=== PATIENT | male | born 1990 | race American Indian/Alaskan Native ===

== ENCOUNTER 2017-12-18 17:33 | Emergency (ER) | payer MEDICAID ==
[2017-12-18 17:36] VITALS: BMI 24.4
[2017-12-18 17:40] VITALS: PULSE 80; RESP 20; TEMP 98.9
[2017-12-18 17:41] VITALS: O2SAT 98
[2017-12-18] MEDS ORDERED: Oxycodone/Acetaminophen 5/325 mg Tab PO STA (18:40)
[2017-12-18] MEDS ORDERED: Lidocaine Hydrochloride 5 ML INJ ONE (18:42)
[2017-12-18] MEDS ORDERED: Oxycodone/Acetaminophen 5/325 mg Tab ONE (18:42)
--- NOTE | 2017-12-18 19:17 | C.PDOC ---
History Of Present Illness 27 year old male presents to the emergency department with complaints of a painful lesion on his right medial buttock for the last four days. Patient reports that he missed work today due to the pain. Time Seen by Provider: 12/18/17 18:31 Chief Complaint (Nursing): GI Problem History Per: Patient History/Exam Limitations: no limitations Onset/Duration Of Symptoms: Days (4) Current Symptoms Are (Timing): Still Present Location Of Injury: Right: Buttock Quality Of Symptoms: Painful Past Medical History Reviewed: Historical Data, Nursing Documentation, Vital Signs Vital Signs: Last Vital Signs Temp 98.9 F 12/18/17 19:41 Pulse 80 12/18/17 19:41 Resp 20 12/18/17 19:41 BP 120/80 12/18/17 19:41 Pulse Ox 98 12/18/17 19:41 - Medical History PMH: No Chronic Diseases Surgical History: No Surg Hx Family History: States: No Known Family Hx - Social History Hx Alcohol Use: No Hx Substance Use: Yes - Immunization History Hx Tetanus Toxoid Vaccination: No Hx Influenza Vaccination: No Hx Pneumococcal Vaccination: No Review Of Systems Except As Marked, All Systems Reviewed And Found Negative. Skin: Positive for: Lesions (right medial buttock) Physical Exam - Physical Exam Appears: Non-toxic, No Acute Distress Skin: Warm, Dry, Other (4x4cm raised fluctuance on right medial buttock, does not cross midline) Head: Atraumatic Eye(s): bilateral: Normal Inspection Neck: Normal ROM, Supple Chest: Symmetrical Cardiovascular: Rhythm Regular, No Murmur Respiratory: Normal Breath Sounds Gastrointestinal/Abdominal: Normal Exam, Soft, No Tenderness, No Guarding, No Rebound Back: Normal Inspection Extremity: Normal ROM Extremity: Bilateral: Atraumatic Neurological/Psych: Oriented x3, Normal Speech, Normal Cognition ED Course And Treatment O2 Sat by Pulse Oximetry: 98 (RA) Pulse Ox Interpretation: Normal - Incision & Drainage Of Abscess Anesthesia: Lidocaine 1% (5cc, subcutaenous ) Procedure: Incised W/Scalpel Blade#: (10), Irrigated Cavity W/Saline, Packed W/ Gauze Medical Decision Making Medical Decision Making: small boil/abscess medial R buttock now s/p I/D x 5 cc's putrid puss much improved NOT a pilonydal cyst. Bactrim for presumed MRSA Plan: Bactrim 1 tab PO Percocet 1 tab PO Disposition Doctor Will See Patient In The: Office Counseled Patient/Family Regarding: Studies Performed, Diagnosis - Disposition Referrals: [facility] [Outside] [facility] [Outside] [facility] [Outside] Disposition: HOME/ ROUTINE Disposition Time: 19:16 Condition: GOOD Additional Instructions: ice packs to the area tonight for pain contol Bactrim DS (antibiotic) twice a day to complete 5 days Motrin/Advil 400-600 mg every 6 hours as needed for local pain Return in 2 days for wound check and to pull the packing Prescriptions: Sulfamethoxazole/Trimethoprim [Bactrim DS 800 mg-160 mg] 1 tab PO BID #9 tab Instructions: Abscess Incision and Drainage Forms: [facility] (Uzbek), Work Excuse - Clinical Impression Clinical Impression: Abscess - Scribe Statement The provider has reviewed the documentation as recorded by the Scribe (Gabe Brizuela) Provider Attestation: All medical record entries made by the Scribe were at my direction and personally dictated by me. I have reviewed the chart and agree that the record accurately reflects my personal performance of the history, physical exam, medical decision making, and the department course for this patient. I have also personally directed, reviewed, and agree with the discharge instructions and disposition.
[2017-12-18] MEDS ORDERED: Tmp-Smz 800 mg-160 mg DS Tab PO STA (19:20)
[2017-12-18] MEDS ORDERED: Tmp-Smz 800 mg-160 mg DS Tab ONE (19:36)
[2017-12-18 19:43] VITALS: BP 120/80
== END 2017-12-18 19:43 | disposition home or self-care (01) ==
LOC: C.ER 17:33
DX: L02.31 Cutaneous abscess of buttock (principal)

== ENCOUNTER 2018-02-12 21:51 | Emergency (ER) | payer MEDICAID ==
[2018-02-12 21:52] VITALS: BMI 24.4
[2018-02-12 22:07] VITALS: BP 135/84; RESP 16; TEMP 98.4
--- NOTE | 2018-02-12 23:17 | C.PDOC ---
Time Seen by Provider: 02/12/18 22:05 Chief Complaint (Nursing): GI Problem History Per: Patient Onset/Duration Of Symptoms: Days, Intermittent Episodes Current Symptoms Are (Timing): Still Present Amount of Blood Loss: Small Severity: Mild Quality Of Discomfort: "Pain" Associated Symptoms: Rectal Bleeding Modifying Factors: None Additional History Per: Prior Records Past Medical History Reviewed: Historical Data, Nursing Documentation, Vital Signs Vital Signs: Last Vital Signs Temp 98.4 F 02/12/18 22:04 Pulse 80 02/12/18 22:04 Resp 16 02/12/18 22:04 BP 135/84 02/12/18 22:04 Pulse Ox 99 02/12/18 22:04 - Medical History PMH: No Chronic Diseases Surgical History: No Surg Hx Family History: States: Unknown Family Hx - Social History Hx Alcohol Use: No Hx Substance Use: Yes - Immunization History Hx Tetanus Toxoid Vaccination: No Hx Influenza Vaccination: No Hx Pneumococcal Vaccination: No Review Of Systems Except As Marked, All Systems Reviewed And Found Negative. Constitutional: Negative for: Fever, Weakness Cardiovascular: Negative for: Chest Pain, Light Headedness Respiratory: Negative for: Shortness of Breath Gastrointestinal: Positive for: Constipation, Hematochezia, Rectal Pain. Negative for: Vomiting, Abdominal Pain, Diarrhea, Melena, Hematemesis Genitourinary: Negative for: Dysuria Musculoskeletal: Negative for: Neck Pain, Back Pain Skin: Negative for: Rash Neurological: Negative for: Weakness, Numbness Physical Exam - Physical Exam Appears: Non-toxic, No Acute Distress Skin: Normal Color, Warm, Dry, No Rash Head: Atraumatic, Normacephalic Eye(s): bilateral: PERRL, EOMI Neck: Normal ROM, Supple Cardiovascular: Rhythm Regular Respiratory: Normal Breath Sounds, No Accessory Muscle Use Gastrointestinal/Abdominal: Soft, No Tenderness, No Distention Rectal: Rectal Tone (wnl), Hemorrhoids, No Mass, Tenderness, Other (No blood or stool in rectal vault) Back: No CVA Tenderness Extremity: Normal ROM Neurological/Psych: Oriented x3, Normal Motor, Normal Sensation ED Course And Treatment O2 Sat by Pulse Oximetry: 99 Pulse Ox Interpretation: Normal Disposition Counseled Patient/Family Regarding: Diagnosis, Need For Followup, Rx Given - Disposition Referrals: Sho Zuleta [Staff Provider] - Disposition: HOME/ ROUTINE Disposition Time: 23:18 Condition: STABLE Additional Instructions: Follow up with a Joint Runner for further evaluation and treatment. Return to the ER if you develop abdominal pain, dizziness, heavy bleeding, fever , worsening of symptoms or if you have any other concerns. Prescriptions: Hydrocortisone 2.5% (Rectal) [Anusol-HC] 1 applic IA BID #1 tube Instructions: Anal Fissure (DC) - Clinical Impression Clinical Impression: Constipation, Rectal or anal pain
[2018-02-13 00:05] VITALS: PULSE 66; O2SAT 100
== END 2018-02-12 23:45 | disposition home or self-care (01) ==
LOC: C.ER 21:51
DX: K59.00 Constipation, unspecified (principal); K62.89 Other specified diseases of anus and rectum